=== PATIENT | male | born 1995 | race Two or more races ===

== ENCOUNTER 2016-11-22 20:18 | Emergency (ER) | payer MEDICAID ==
[2016-11-22 20:45] VITALS: TEMP 98.6
--- NOTE | 2016-11-22 21:33 | EDPHY ---
H & P Stated Complaint: L shoulder heaviness, possibly panic attack Time Seen by Provider: 11/22/16 21:33 - Personal History Current Tetanus/Diphtheria Vaccine: No - Medical/Surgical History Hx Asthma: No Hx Chronic Respiratory Disease: No Hx Diabetes: No Hx Cardiac Disease: No Hx Renal Disease: No Hx Cirrhosis: No Hx Alcoholism: No Hx HIV/AIDS: No Hx Splenectomy or Spleen Trauma: No Other PMH: PMHx: hypertension. PSHx: denies - Social History Smoking Status: Never smoked Constitutional: Initial Vital Signs Temperature (C) 37 C 11/22/16 20:42 Heart Rate 73 11/22/16 20:42 Respiratory Rate 17 11/22/16 20:42 Blood Pressure 164/76 H 11/22/16 20:42 O2 Sat (%) 99 11/22/16 20:42 Allergies/Adverse Reactions: No Known Allergies Allergy (Unverified 07/28/15 03:45) Home Medications: Medication Instructions Recorded NK [No Known Home Meds] 07/28/15 Medical Decision Making ED Course/Re-evaluation: CHIEF COMPLAINT: "I put myself into a panic attack" HISTORY OF PRESENT ILLNESS: The patient is a 21 y/o male arriving for evaluation after a panic attack tonight secondary to worrying about his tetanus vaccination status. He deconstructed a bed 2 weeks ago and cut up his hands, but did not get a tetanus shot at that time. He since began worrying he was developing tetanus after Googling symptoms. He currently denies any symptoms. He is normally healthy. REVIEW OF SYSTEMS: A 10 point review of systems was performed and is negative with the exception of the elements mentioned in the history of present illness. PHYSICAL EXAM: HR, BP, O2 Sat, RR. Temp noted General Appearance: Alert, well hydrated, appropriate, and non-toxic appearing. Head: Atraumatic without scalp tenderness or obvious injury Eyes: Pupils equal, round, reactive to light and accommodation, EOMI, no trauma , no injection. Nose: Atraumatic, no rhinorrhea, clear. Throat: Mucus membranes moist. Neck: Supple, 2+ carotid upstroke, nontender, no lymphadenopathy. Respiratory: No retractions, no distress, no wheezes, and no accessory muscle use. Lungs are clear to auscultation bilaterally. Cardiovascular: Regular rate and rhythm, no murmurs, rubs, or gallops. Bilateral carotid, radial, dorsalis pedis, and posterior tibial pulses intact. Good capillary refill all extremities. Gastrointestinal: Abdomen is soft, nontender, non-distended, no masses, no rebound, no guarding, no peritoneal signs. Musculoskeletal: Normal active ROM of all extremities, atraumatic. Neurological: Alert, appropriate, and interactive. The patient has normal DTRs and non-focal cranial nerves, motor, sensory, and cerebellar exam. Skin: No rashes, good turgor, no nodules on palpation. Past medical history: Denies Past surgical history: Denies Family history: noncontributory Social history: Lives in [place]. DIFFERENTIAL DIAGNOSIS: MEDICAL DECISION MAKING: Departure - Departure Disposition: Home, Routine, Self-Care Clinical Impression: Tetanus toxoid inoculation Condition: Good Instructions: Tetanus (ED) Additional Instructions: Follow up with your primary care provider for any continued symptoms. Referrals: NONE *PRIMARY CARE P,. [Primary Care Provider] - As per Instructions [facility] [Cl[facility]] - As per Instructions Report Scribed for: Charlie Harper Report Scribed by: Skyla Mendoza Date of Report: 11/22/16 Time of Report: 21:38
[2016-11-22] MEDS ORDERED: TDAP ADULT 0.5 ML INJ (BOOSTRIX) IM ONE (21:39)
[2016-11-22 21:58] VITALS: BP 150/80; PULSE 70; RESP 18; O2SAT 93
== END 2016-11-22 21:55 | disposition home or self-care (01) ==
DX: Z23 Encounter for immunization (principal); I10 Essential (primary) hypertension

== ENCOUNTER 2017-06-13 00:22 | Emergency (ER) | payer MEDICAID, OTHER ==
[2017-06-13 00:31] VITALS: BP 155/92; PULSE 67; RESP 18; TEMP 99; O2SAT 99
--- NOTE | 2017-06-13 00:55 | EDPHY ---
H & P Stated Complaint: SOB Time Seen by Provider: 06/13/17 00:33 HPI/ROS: Chief Complaint: Shortness of breath HPI: 21-year-old male has been having intermittent chest tightness for the last 2 days. He has had a history of this in the past. No chest pain. Patient states the symptoms come on and last for about half an hour and then go away. There are no aggravating or alleviating symptoms. No cough. No fevers or chills. Patient states that he had an episode earlier today while at work. He did some deep breathing exercises in his symptoms with resolved. He is feeling better and went home. Tonight he was going to go out with friends. Walking down the mall before entering any establishment he started feeling the tightness again. He presenting for evaluation. Patient states that since arriving the hospital he is feeling better. He does have a history of anxiety but is not currently taking medications. Prior episodes to this have been attributed to his anxiety. Does not have a history of recent travel. No leg pain or swelling. ROS: 10 point Review of Systems is negative except as noted in the HPI. PMH: Anxiety Social History: No smoking, occasional alcohol, occasional marijuana Family History: non-contributory Physical Exam: Gen: Awake, Alert, No Distress, anxious appearing HEENT: Nose: no rhinorrhea Eyes: PERRLA, EOMI Mouth: Moist mucosa Neck: Supple, no JVD Chest: nontender, lungs clear to auscultation Heart: S1, S2 normal, no murmur Abd: Soft, non-tender, no guarding Back: no CVA tenderness, no midline tenderness Ext: no edema, non-tender Skin: no rash Neuro: CN II-XII intact, Sensation grossly intact, Strength 5/5 in bilateral upper and lower extremities - Personal History Current Tetanus/Diphtheria Vaccine: Yes Current Tetanus Diphtheria and Acellular Pertussis (TDAP): Yes - Medical/Surgical History Hx Asthma: No Hx Chronic Respiratory Disease: No Hx Diabetes: No Hx Cardiac Disease: No Hx Renal Disease: No Hx Cirrhosis: No Hx Alcoholism: No Hx HIV/AIDS: No Hx Splenectomy or Spleen Trauma: No Other PMH: PMHx: hypertension. PSHx: denies - Social History Smoking Status: Never smoked Constitutional: Initial Vital Signs Temperature (C) 37.2 C 03/03/18 00:28 Heart Rate 67 06/13/17 00:28 Respiratory Rate 18 06/13/17 00:28 Blood Pressure 155/92 H 06/13/17 00:28 O2 Sat (%) 99 06/13/17 00:28 O2 Delivery Mode Room Air Allergies/Adverse Reactions: No Known Allergies Allergy (Unverified 07/28/15 03:45) Home Medications: Medication Instructions Recorded NK [No Known Home Meds] 07/28/15 Medical Decision Making ED Course/Re-evaluation: 21-year-old male with intermittent shortness of breath for the last 2 days with some mild chest tightness. No pain. No cough. Symptoms are occurring and anxiety provoking situations. He is asymptomatic in the emergency department. His lung sounds are normal. His oxygenation is normal. His vital signs are normal. He is perc negative and Wells negative. He has been reassured. No indication for chest x-ray or blood work at this time. He will follow up with primary care physician for further evaluation. Departure - Departure Disposition: Home, Routine, Self-Care Clinical Impression: Anxiety, Dyspnea Condition: Good Instructions: Anxiety (ED), Dyspnea (ED) Additional Instructions: Follow up with primary care physician in 3-4 days for further evaluation. Return to the emergency department for increasing shortness of breath, chest pain, fainting, fevers, chills, or any other concerns. Referrals: NONE *PRIMARY CARE P,. [Primary Care Provider] - As per Instructions
== END 2017-06-13 01:18 | disposition home or self-care (01) ==
DX: F41.9 Anxiety disorder, unspecified (principal); R06.00 Dyspnea, unspecified; I10 Essential (primary) hypertension

== ENCOUNTER 2018-01-26 19:19 | Emergency (ER) | payer OTHER ==
--- NOTE | 2018-01-26 19:47 | EDPHY ---
HPI/HX/ROS/PE/MDM Narrative: CHIEF COMPLAINT: Racing heart HPI: The patient is a 22 y/o male with a history of anxiety complaining of mild chest pain for 2 weeks. Per the patient this chest pain has been intermittent for the last several months, but around 2 weeks ago his most recent episode began. This pain has been mild and waxing and waning. It is not aggravated with exertion or taking a deep breath. The pain is worse in the evening and when standing up. Today he was getting coffee with his friend when he started coughing and developed a heaviness in his chest. He then started having bilateral arm heaviness so he decided to present to the emergency department. When he was checking in he felt like his heart was beating too fast and thought that his "head was going to explode". When he eventually lied down in the room, the racing heart stopped but he was still having a mild chest pain. He reports that his family has high blood pressure. No headache, shortness of breath, abdominal pain, urinary or bowel complaints, numbness, fevers. REVIEW OF SYSTEMS: Aside from elements discussed in the HPI, a comprehensive 10 system review of systems is otherwise negative. PMH: Anxiety SOCIAL HISTORY: Works in [place], single, lives in [place] PHYSICAL EXAM: General: Patient is anxious, alert, in no acute distress. ENT: Eyes are normal to inspection. ENT inspection normal. Neck: Normal inspection. Full range of motion. Respiratory: No respiratory distress. Breath sounds normal bilaterally. Cardiovascular: Regular rate and rhythm. Strong peripheral pulses. Normal cap refill. Abdomen: The abdomen is nontender to palpation. There are no peritoneal signs. There are normal bowel sounds. Back: Normal to inspection. No tenderness to palpation. Skin: Normal color. No rash. Warm and dry. Extremities: Normal appearance. Full range of motion. Neuro: Oriented x3. Normal motor function. Normal sensory function. ED Course: 1926: EKG was ordered and interpreted by myself. Please see [employer] system for official reading. 2052: Reassessed patient and discussed normal laboratory and imaging findings. He is no longer symptomatic and feels relaxed after 0.5mg Ativan and GI cocktail. I have advised him to follow up with [facility]. Return precautions provided; patient is comfortable with this plan. MDM: This is a young healthy male with atypical chest pain. His workup is negative. I see no signs of ACS, PE, TAD, PTX, PNA. The patient suspects anxiety is likely etiology. I think he is safe for discharge home with outpatient follow- up and strict return precautions. - Data Points Imaging Results: Imaging Impressions Chest X-Ray 01/26/18 19:50 Impression: No acute cardiopulmonary process. Imaging: I viewed and interpreted images myself Laboratory Results: Laboratory Results 01/26/18 19:30 01/26/18 19:30 01/26/18 01/26/18 01/26/18 19:35 19:30 19:30 WBC RBC Hgb Hct MCV MCH MCHC RDW Plt Count MPV Neut % (Auto) Lymph % (Auto) [place] % (Auto) Eos % (Auto) Baso % (Auto) Nucleat RBC Rel Count Absolute Neuts (auto) Absolute Lymphs (auto) Absolute Monos (auto) Absolute Eos (auto) Absolute Basos (auto) Absolute Nucleated RBC Immature Gran % Immature Gran # D-Dimer < 0.27 ug/mLFEU ug/mLFEU (0.00-0.50) Sodium 138 mEq/L mEq/L (135-145) Potassium 3.6 mEq/L mEq/L (3.3-5.0) Chloride 98 mEq/L mEq/L (97-110) Carbon Dioxide 26 mEq/l mEq/l (22-31) Anion Gap 14 mEq/L mEq/L (6-14) BUN 15 mg/dL mg/dL (7-23) Creatinine 0.9 mg/dL mg/dL (0.7-1.3) Estimated GFR > 60 Glucose 107 mg/dL H mg/dL (70-100) Calcium 10.1 mg/dL mg/dL (8.5-10.4) POC Troponin I 0.01 ng/mL ng/mL (0.00-0.08) 01/26/18 19:30 WBC 14.42 10^3/uL H 10^3/uL (3.80-9.50) RBC 5.37 10^6/uL 10^6/uL (4.40-6.38) Hgb 16.7 g/dL g/dL (13.7-17.5) Hct 48.6 % % (40.0-51.0) MCV 90.5 fL fL (81.5-99.8) MCH 31.1 pg pg (27.9-34.1) MCHC 34.4 g/dL g/dL (32.4-36.7) RDW 12.4 % % (11.5-15.2) Plt Count 204 10^3/uL 10^3/uL (150-400) MPV 13.9 fL H fL (8.7-11.7) Neut % (Auto) 58.6 % % (39.3-74.2) Lymph % (Auto) 30.0 % % (15.0-45.0) [place] % (Auto) 7.6 % % (4.5-13.0) Eos % (Auto) 3.0 % % (0.6-7.6) Baso % (Auto) 0.5 % % (0.3-1.7) Nucleat RBC Rel Count 0.0 % % (0.0-0.2) Absolute Neuts (auto) 8.45 10^3/uL H 10^3/uL (1.70-6.50) Absolute Lymphs (auto) 4.33 10^3/uL H 10^3/uL (1.00-3.00) Absolute Monos (auto) 1.09 10^3/uL H 10^3/uL (0.30-0.80) Absolute Eos (auto) 0.43 10^3/uL H 10^3/uL (0.03-0.40) Absolute Basos (auto) 0.07 10^3/uL 10^3/uL (0.02-0.10) Absolute Nucleated RBC 0.00 10^3/uL 10^3/uL (0-0.01) Immature Gran % 0.3 % % (0.0-1.1) Immature Gran # 0.05 10^3/uL 10^3/uL (0.00-0.10) D-Dimer Sodium Potassium Chloride Carbon Dioxide Anion Gap BUN Creatinine Estimated GFR Glucose Calcium POC Troponin I Medications Given: Discontinued Medications Al Hydroxide/Mg Hydroxide (Maalox Susp) 30 ml PO ONCE ONE Stop: 01/26/18 19:51 Last Admin: 01/26/18 19:54 Dose: 30 ml Hyoscyamine Sulfate (Levsin, Hyomax-Sl) 0.25 mg PO ONCE ONE Stop: 01/26/18 19:51 Last Admin: 01/26/18 20:05 Dose: 0.25 mg Lidocaine (Lidocaine 2% Viscous) 15 ml PO ONCE ONE Stop: 01/26/18 19:51 Last Admin: 01/26/18 19:54 Dose: 15 ml Lorazepam (Ativan Injection) 0.5 mg IVP EDNOW ONE Stop: 01/26/18 19:51 Last Admin: 01/26/18 19:54 Dose: 0.5 mg Point of Care Test Results: Chemistry 01/26/18 19:35 POC Troponin I 0.01 ng/mL ng/mL (0.00-0.08) General Time Seen by Provider: 01/26/18 19:42 Initial Vital Signs: Initial Vital Signs Temperature (C) 36.6 C 01/26/18 19:20 Heart Rate 107 H 01/26/18 19:20 Respiratory Rate 20 01/26/18 19:20 Blood Pressure 200/84 H 01/26/18 19:20 O2 Sat (%) 100 01/26/18 19:20 O2 Delivery Mode Room Air Allergies/Adverse Reactions: No Known Allergies Allergy (Unverified 01/26/18 19:20) Home Medications: Medication Instructions Recorded NK [No Known Home Meds] 07/28/15 Departure - Departure Disposition: Home, Routine, Self-Care Clinical Impression: Chest pain, Anxiety Condition: Good Instructions: Chest Pain (ED) Additional Instructions: Follow-up with your primary doctor within 72 hours. Return to the Emergency Department for fever, chest pain, shortness of breath, increasing pain or other worsening of condition. Follow up with a director merit system for further testing, as soon as possible, within one week. As we discussed, it is impossible to fully rule out heart disease as the cause of your chest pain in the emergency department. We would be happy to reevaluate you and observe you in the hospital at any time. Referrals: Catalina Forde MD [Medical Doctor] - As per Instructions Report Scribed for: Garrett Londono Report Scribed by: Lenore Clinton Date of Report: 01/26/18 Time of Report: 19:44 Physician Review and Approval Statement: Portions of this note were transcribed by an ED scribe. I personally performed the history, physical exam, and medical decision making; and confirm the accuracy of the information in the transcribed note.
[2018-01-26] MEDS ORDERED: LORazepam 2 MG/ML INJ IVP ONE (19:50)
[2018-01-26] MEDS ORDERED: LIDOCAINE 2% VISCOUS 15 ML UDCUP PO ONE (19:50)
[2018-01-26] MEDS ORDERED: HYOSCYAMINE SULFATE 0.125 MG TAB PO ONE (19:50)
[2018-01-26] MEDS ORDERED: MAG HYDROX/AL HYDROX/SIMETH 30 ML UDCUP PO ONE (19:50)
[2018-01-26 20:06] LABS: PLATELET COUNT 204 10^3/uL (150-400)
--- NOTE | 2018-01-26 20:32 | CPEKG ---
Test Reason : OPEN Blood Pressure : / mmHG Vent. Rate : 087 BPM Atrial Rate : 084 BPM P-R Int : 161 ms QRS Dur : 101 ms QT Int : 358 ms P-R-T Axes : 041 046 023 degrees QTc Int : 431 ms Sinus rhythm Atrial premature complex Confirmed by Ciarra Aguero ([id number]) on 01/26/2018 8:31:12 PM Referred By: Confirmed By:Ciarra Aguero
[2018-01-26 20:59] VITALS: BP 144/78
== END 2018-01-26 20:59 | disposition home or self-care (01) ==
DX: R07.9 Chest pain, unspecified (principal); F41.9 Anxiety disorder, unspecified
CPT/HCPCS: 84484-PO; 96374; J2060